=== PATIENT | male | born 2005 | race Caucasian/White ===

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

== ENCOUNTER 2024-02-28 04:58 | Emergency (ER) | payer OTHER, SELFPAY ==
[2024-02-28 05:09] VITALS: BP 137/98; TEMP 97.5; O2SAT 100
[2024-02-28 05:37] LABS: BASO % 0.3 % (0.0-1.0); EOS % 0.1 % (0.0-3.0); HEMATOCRIT 43.4 % (42.0-52.0); HEMOGLOBIN 15.7 g/dl (13.5-17.5); LYMPH % 18.3 % (24.0-44.0); MEAN CORPUSCULAR HEMOGLOBIN 31.8 pg (27.0-33.0); MEAN CORPUSCULAR HGB CONC 36.2 g/dl (32.0-36.5); MEAN CORPUSCULAR VOLUME 87.9 fl (80.0-96.0); MONO # 0.7 10^3/uL (0.0-0.8); MONO % 6.9 % (2.0-8.0); NEUTROPHILS # 7.9 10^3/uL (1.5-8.5); NEUTROPHILS % 74.1 % (36.0-66.0); PLATELET COUNT, AUTOMATED 274 10^3/uL (150-450); RED BLOOD COUNT 4.94 10^6/uL (4.30-6.10); WHITE BLOOD COUNT 10.7 10^3/uL (4.0-10.0)
[2024-02-28 06:08] LABS: CK-MB VALUE MASS 1.1 NG/ML (<3.6)
[2024-02-28 06:10] LABS: BLOOD UREA NITROGEN 12 MG/DL (9-23); CALCIUM LEVEL 9.8 MG/DL (8.5-10.1); CARBON DIOXIDE LEVEL 26 MMOL/L (20-31); CHLORIDE LEVEL 101 MMOL/L (98-107); CREATININE FOR GFR 0.78 MG/DL (0.70-1.30); GLUCOSE, FASTING 113 MG/DL (60-100); POTASSIUM SERUM 3.9 MMOL/L (3.5-5.1); SODIUM LEVEL 137 MMOL/L (136-145)
[2024-02-28 06:12] LABS: CPK CREATINE PHOSPHOKINASE 255 U/L (46-171); MB/CK RELATIVE INDEX 0.43 (< OR =4)
[2024-02-28 07:20] LABS: CK-MB VALUE MASS 1.2 NG/ML (<3.6); MB/CK RELATIVE INDEX 0.53 (< OR =4)
== END 2024-02-28 07:45 | disposition left against medical advice (07) ==
LOC: M ED 04:58
DX: R07.9 Chest pain, unspecified (principal); F14.10 Cocaine abuse, uncomplicated; Z53.9 Procedure and treatment not carried out, unspecified reason